=== PATIENT | female | born 1975 | race Caucasian/White ===

== ENCOUNTER → 2020-09-11 12:59 | Outpatient (BNVA) | payer OTHER, SELFPAY | PROVIDERS: PCP Family Medicine; Visit Provider Physician Assistant ==

== ENCOUNTER → 2020-09-26 08:15 | Outpatient (BNVA) | payer OTHER, SELFPAY | PROVIDERS: PCP Family Medicine; Visit Provider Surgery ==

== ENCOUNTER 2020-10-02 08:37 | Outpatient (REF) | payer OTHER, SELFPAY ==
--- NOTE | ~2020-10-02 | XR_ITS ---
EXAMINATION: XR CHEST CLINICAL INFORMATION: Morbid obesity due to excess calories COMPARISON: None TECHNIQUE: Two views of the chest were obtained. FINDINGS: No significant abnormality is noted involving the heart, lungs, mediastinum, bony thorax or soft tissues. XR/XR chest 2V IMPRESSION: Unremarkable examination.
--- NOTE | 2020-10-02 08:46 | ECG_ITS ---
Test Reason : OBESITY Blood Pressure : / mmHG Vent. Rate : 066 BPM Atrial Rate : 066 BPM P-R Int : 156 ms QRS Dur : 096 ms QT Int : 416 ms P-R-T Axes : 022 -29 042 degrees QTc Int : 436 ms Normal sinus rhythm Minimal voltage criteria for LVH, may be normal variant Borderline ECG When compared with ECG of 19-SEP-2019 20:15, No significant change was found Referred By: Roel Bejarano Electronically Signed By:DUSTIN ALLEN MD
[2020-10-02 09:50] LABS: MANUAL DIFF FLAG NO
[2020-10-02 10:08] LABS: Basophils Percent Auto 0.4 % (0-2); Eosinophils Absolute Auto 0.1 X10*3/uL (0.0-0.4); Hematocrit 41.7 % (37-47); Imm Gran Abs Auto 0.02 X10*3/uL (0.00-0.03); Imm Gran Pct Auto 0.4 % (0.0-0.4); Lymphocytes Absolute Auto 1.6 X10*3/uL (1.2-4.9); Mean Corpuscular HGB Conc 33.6 g/dl (31.0-35.0); Mean Corpuscular Hemoglobin 28.5 pg (27.0-33.0); Mean Corpuscular Volume 84.9 fL (80-98); Mean Platelet Volume 10.3 fL (9.4-12.3); Monocytes Absolute Auto 0.6 X10*3/uL (0.1-1.2); Monocytes Percent Auto 12.5 % (2-11); Neutrophils Absolute Auto 2.7 X10*3/uL (2.0-8.3); Neutrophils Percent Auto 53.7 % (45-73); Platelet Count 238 X10*3/uL (160-400); Red Blood Count 4.91 X10*6/uL (4.20-5.50); Red Cell Distribution Width 12.9 % (11.0-16.0)
[2020-10-02 10:09] LABS: Alanine Aminotransferase 82 U/L (0-31); Albumin Level 4.1 g/dL (3.5-5.0); Alkaline Phosphatase 59 U/L (39-117); Anion Gap 12 (12-20); Aspartate Amino Transferase 65 U/L (5-31); Bilirubin Total 0.6 mg/dL (0.0-1.0); Blood Urea Nitrogen 17 mg/dL (9-16); C Reactive Protein 0.96 mg/dL (< or = 0.50); Calcium 9.3 mg/dL (8.4-10.2); Carbon Dioxide 25 mmol/L (22-29); Chloride 105 mmol/L (96-108); Cholesterol 166 mg/dL; Estimated Glomerular Filt Rate > 60; Glucose Random 81 mg/dL (60-115); HDL Cholesterol 45 mg/dL; Iron 85 mcg/dL (30-160); LDL Cholesterol Calculated 107 mg/dl; Percent Iron Saturation 22 % (15-50); Sodium 138 mmol/L (135-145); Total Iron Binding Capacity 390 mcg/dL (228-428); Total Protein 7.4 g/dL (6.5-8.0); Triglycerides 71 mg/dL; Unsaturated Iron Binding 305 ug/dL
[2020-10-02 10:11] LABS: Estimated Average Glucose 108 mg/dL; Hemoglobin A1c % 5.4 %
[2020-10-02 10:34] LABS: TSH reflex Free T4 1.91 uIU/mL (0.32-4.0); Vitamin D 25-OH Total 33.3 ng/mL (>30)
[2020-10-02 10:51] LABS: Vitamin B12 264 pg/mL (200-900)
[2020-10-02 11:05] LABS: Ferritin 178 ng/mL (10-250)
[2020-10-03 12:42] LABS: H Pylori Breath Test NOT DETECTED (NOT DETECTED)
[2020-10-03 15:57] LABS: Calcium (PTHI) 9.3 mg/dL (8.6-10.2); PTHI 69 pg/mL (14-64)
[2020-10-03 19:11] LABS: Insulin Level Total 27.1 uIU/mL
[2020-10-05 18:37] LABS: Zinc 84 mcg/dL (60-130)
[2020-10-06 12:37] LABS: Vitamin B1 7 nmol/L (8-30)
[2020-10-08 01:22] LABS: Vitamin A 37 mcg/dL (38-98)
== END 2020-10-02 08:38 | disposition home or self-care (01) ==
LOC: HO.LAB 08:37
PROVIDERS: PCP Family Medicine; Visit Provider Surgery
DX: E66.01 Morbid (severe) obesity due to excess calories (principal); G47.30 Sleep apnea, unspecified; K76.0 Fatty (change of) liver, not elsewhere classified
CPT/HCPCS: 36415; 71046; 80053; 80061; 82306; 82607; 82728; 82746; 83013; 83036; 83525; 83540; 83970; 84425; 84443; 84590; 84630; 85025; 86140; 93005

== ENCOUNTER → 2020-10-09 12:03 | Outpatient (BNVA) | payer OTHER, SELFPAY | PROVIDERS: PCP Family Medicine; Referring Provider Family Medicine; Visit Provider Physician Assistant ==

== ENCOUNTER 2020-10-16 08:02 | Outpatient (REF) | payer OTHER, SELFPAY ==
--- NOTE | ~2020-10-16 | FL_ITS ---
EXAMINATION: XR GI SERIES CLINICAL INFORMATION: Morbid obesity COMPARISON: None TECHNIQUE: Air contrast upper GI examination FINDINGS: There is normal apposition of the vocal cords while saying E. There is normal elevation of the soft palate while saying candy. Patient swallowed thin and thick barium without difficulty. No nasopharyngeal reflux or tracheal aspiration identified. No Zenker's diverticulum or cricopharyngeal hypertrophy. There is normal motility of the esophagus without ulceration or stricture. No hiatal hernia was identified. No gastroesophageal reflux was seen as well as with water siphon test. The stomach has normal distensibility without ulceration or mass. There is no delay in gastric emptying. The duodenal bulb and sweep appear unremarkable. FLUOROSCOPY TIME: 2.7 minutes DOSE AREA PRODUCT: 57.988 Gy-cm2 (hsu-centimeter squared) FL/FL upper GI series IMPRESSION: Normal air contrast upper GI examination.
--- NOTE | ~2020-10-16 | US_ITS ---
EXAMINATION: US COMPLETE ABDOMEN WITH LIVER ELASTOGRAPHY CLINICAL INFORMATION: Obesity COMPARISON: None. TECHNIQUE: Real-time imaging of the abdominal viscera. Noninvasive ultrasound liver fibrosis assessment is performed using Mady ElastPQ point quantification shear wave elastography (pSWE) with a C5-2 MHz transducer. Multiple elastography samples are obtained. FINDINGS: PANCREAS: Normal. ABDOMINAL AORTA: Normal. INFERIOR VENA CAVA: Not well visualized due to bowel gas LIVER: Liver echotexture is increased. The liver demonstrates normal size and contour.. No focal lesion or intrahepatic biliary duct dilatation. The right lobe measures 13.5 cm in length. The left lobe measures 11 cm in length. Portal flow is normal/hepatopedal Shear wave liver elastography median stiffness is 1.35 m/s (reference: normal median stiffness is 1.3 m/s or less). IQR/median stiffness to assess sampling precision is 0.17 (reference: good quality data set is IQR/median stiffness of 0.15 or less). GALLBLADDER: Normal. The gallbladder is physiologically distended without evidence of stones, sludge, polyps, wall thickening or pericholecystic fluid. COMMON BILE DUCT: Normal in caliber measuring 0.3 cm in diameter. RIGHT KIDNEY: Normal. No hydronephrosis. No renal calculi or focal parenchymal lesions. The kidney measures 11.4 cm in maximum dimension. LEFT KIDNEY: Normal. No hydronephrosis. No renal calculi or focal parenchymal lesions. The kidney measures 11.7 cm in maximum dimension. SPLEEN: Normal. The spleen measures 11.6 cm in maximum dimension. FREE FLUID: None. US/US abdomen comp w elastography IMPRESSION: 1. Impression echogenic liver probably representing fatty infiltration. Limited visualization of the IVC due to bowel gas. 2. Liver elastography: Slightly limited due to sampling error. In the absence of other known clinical signs, rules out compensated advanced chronic liver disease. REFERENCE: Society of Radiologists in Ultrasound Liver Stiffness Thresholds (2020): LIVER STIFFNESS THRESHOLDS: *Liver Stiffness equal or less than 1.3 m/s: High probability of being normal. *Liver Stiffness less than 1.7 m/s: In the absence of other known clinical signs, rules out compensated advanced chronic liver disease. *Liver Stiffness 1.7-2.1 m/s: Suggestive of compensated advanced chronic liver disease but need further test for confirmation. *Liver Stiffness over 2.1 m/s: Rules in compensated advanced chronic liver disease. *Liver Stiffness over 2.4 m/s: Suggestive of clinically significant portal hypertension. QUALITY OF DATA SET: *IQR/Median value equal or less than 0.15 implies a quality data set. *IQR/Median value over 0.15 implies a poor quality data set. SIGNIFICANT CHANGE FROM PRIOR EXAM: Significant change if liver stiffness measurement is 10% or greater from prior exam. OTHER CONSIDERATIONS: The stage of liver fibrosis may be overestimated in the setting of acute hepatitis, liver inflammation, elevated liver function tests, hepatic vascular congestion, obstructive cholestasis, non-fasting state, and infiltrative diseases such as amyloidosis and lymphoma. In some patients with NAFLD, the liver stiffness thresholds for compensated advanced chronic liver disease may be lower. In causes other than viral hepatitis and NAFLD, liver stiffness thresholds are not well established.
== END 2020-10-16 08:03 | disposition home or self-care (01) ==
LOC: HO.US 08:02
PROVIDERS: PCP Family Medicine; Visit Provider Surgery
DX: Z01.818 Encounter for other preprocedural examination (principal); E66.01 Morbid (severe) obesity due to excess calories; K21.9 Gastro-esophageal reflux disease without esophagitis; K76.0 Fatty (change of) liver, not elsewhere classified; G47.30 Sleep apnea, unspecified
CPT/HCPCS: 74240; 76705; 76981

== ENCOUNTER → 2020-10-23 08:03 | Outpatient (BNVA) | payer OTHER, SELFPAY | PROVIDERS: PCP Family Medicine; Visit Provider Physician Assistant ==

== ENCOUNTER → 2020-10-30 08:27 | Outpatient (BNVA) | payer OTHER, SELFPAY | PROVIDERS: PCP Family Medicine; Visit Provider Physician Assistant ==

== ENCOUNTER → 2020-11-03 07:08 | Outpatient (BNVA) | payer OTHER, SELFPAY | PROVIDERS: PCP Family Medicine; Visit Provider Surgery ==

== ENCOUNTER → 2020-11-06 08:25 | Outpatient (BNVA) | payer OTHER, SELFPAY | PROVIDERS: PCP Family Medicine; Visit Provider Physician Assistant ==

== ENCOUNTER → 2020-11-13 08:31 | Outpatient (BNVA) | payer OTHER, SELFPAY | PROVIDERS: PCP Family Medicine; Visit Provider Physician Assistant ==

== ENCOUNTER → 2020-11-19 08:27 | Outpatient (BNVA) | payer OTHER, SELFPAY | PROVIDERS: PCP Family Medicine; Visit Provider Physician Assistant ==

== ENCOUNTER → 2020-11-24 08:13 | Outpatient (BNVA) | payer OTHER, SELFPAY | PROVIDERS: PCP Family Medicine; Visit Provider Dietitian, Registered | DX: E66.9 Obesity, unspecified (principal) | CPT/HCPCS: 97802 ==

== ENCOUNTER → 2020-11-27 08:32 | Outpatient (BNVA) | payer OTHER, SELFPAY | PROVIDERS: PCP Family Medicine; Visit Provider Physician Assistant ==

== ENCOUNTER → 2020-12-04 08:30 | Outpatient (BNVA) | payer OTHER, SELFPAY | PROVIDERS: PCP Family Medicine; Visit Provider Surgery ==

== ENCOUNTER → 2020-12-11 08:57 | Outpatient (BNVA) | payer OTHER, SELFPAY | PROVIDERS: PCP Family Medicine; Visit Provider Surgery ==

== ENCOUNTER → 2020-12-16 08:06 | Outpatient (BNVA) | payer OTHER, SELFPAY | PROVIDERS: PCP Family Medicine; Visit Provider Dietitian, Registered | DX: E66.01 Morbid (severe) obesity due to excess calories (principal); Z71.3 Dietary counseling and surveillance | CPT/HCPCS: 97803 ==

== ENCOUNTER → 2020-12-17 08:28 | Outpatient (BNVA) | payer OTHER, SELFPAY | PROVIDERS: PCP Family Medicine; Visit Provider Physician Assistant ==

== ENCOUNTER → 2020-12-25 07:58 | Outpatient (BNVA) | payer OTHER, SELFPAY | PROVIDERS: PCP Family Medicine; Visit Provider Physician Assistant ==

== ENCOUNTER → 2021-01-02 08:55 | Outpatient (BNVA) | payer OTHER, SELFPAY | PROVIDERS: PCP Family Medicine; Visit Provider Physician Assistant ==

== ENCOUNTER → 2021-01-14 06:53 | Outpatient (BNVA) | payer OTHER, SELFPAY | PROVIDERS: PCP Family Medicine; Visit Provider Surgery ==

== ENCOUNTER → 2021-01-16 08:10 | Outpatient (BNVA) | payer OTHER, SELFPAY | PROVIDERS: PCP Family Medicine; Referring Provider Family Medicine; Visit Provider Physician Assistant ==

== ENCOUNTER → 2021-02-06 08:31 | Outpatient (BNVA) | payer OTHER, SELFPAY | PROVIDERS: PCP Family Medicine; Visit Provider Surgery ==

== ENCOUNTER → 2021-02-13 08:30 | Outpatient (BNVA) | payer OTHER, SELFPAY | PROVIDERS: PCP Family Medicine; Referring Provider Family Medicine; Visit Provider Physician Assistant ==

== ENCOUNTER → 2021-02-27 08:07 | Outpatient (BNVA) | payer OTHER, SELFPAY | PROVIDERS: PCP Family Medicine; Referring Provider Family Medicine; Visit Provider Surgery ==

== ENCOUNTER → 2021-03-06 08:05 | Outpatient (BNVA) | payer OTHER, SELFPAY | PROVIDERS: PCP Family Medicine; Referring Provider Family Medicine; Visit Provider Physician Assistant ==

== ENCOUNTER → 2021-03-13 08:26 | Outpatient (BNVA) | payer OTHER, SELFPAY | PROVIDERS: PCP Family Medicine; Referring Provider Family Medicine; Visit Provider Physician Assistant ==

== ENCOUNTER → 2021-04-10 08:08 | Outpatient (BNVA) | payer OTHER, SELFPAY | PROVIDERS: PCP Family Medicine; Visit Provider Surgery ==

== ENCOUNTER → 2021-07-24 08:30 | Outpatient (BNVA) | payer OTHER, SELFPAY | PROVIDERS: PCP Family Medicine; Referring Provider Family Medicine; Visit Provider Physician Assistant Surgical | DX: Z13.89 Encounter for screening for other disorder (principal) ==

== ENCOUNTER → 2021-08-07 09:49 | Outpatient (BNVA) | payer OTHER, SELFPAY | PROVIDERS: PCP Family Medicine; Referring Provider Family Medicine; Visit Provider Physician Assistant Surgical | DX: Z13.89 Encounter for screening for other disorder (principal) ==

== ENCOUNTER → 2021-08-21 09:03 | Outpatient (BNVA) | payer OTHER, SELFPAY | PROVIDERS: PCP Family Medicine; Referring Provider Family Medicine; Visit Provider Physician Assistant Surgical | DX: Z13.89 Encounter for screening for other disorder (principal) ==

== ENCOUNTER → 2021-10-01 14:15 | Outpatient (BNVA) | payer OTHER, SELFPAY | PROVIDERS: PCP Family Medicine; Visit Provider Counselor Mental Health | DX: F33.1 Major depressive disorder, recurrent, moderate (principal); E66.01 Morbid (severe) obesity due to excess calories | CPT/HCPCS: 90834 ==

== ENCOUNTER → 2021-10-22 12:00 | Outpatient (BNVA) | payer OTHER, SELFPAY | PROVIDERS: PCP Family Medicine; Visit Provider Counselor Mental Health | DX: F33.1 Major depressive disorder, recurrent, moderate (principal); E66.01 Morbid (severe) obesity due to excess calories | CPT/HCPCS: 90834 ==

== ENCOUNTER → 2021-11-05 11:45 | Outpatient (BNVA) | payer OTHER, SELFPAY | PROVIDERS: PCP Family Medicine; Visit Provider Counselor Mental Health | DX: F33.1 Major depressive disorder, recurrent, moderate (principal); E66.01 Morbid (severe) obesity due to excess calories | CPT/HCPCS: 90834 ==

== ENCOUNTER 2023-02-28 19:32 | Emergency (ER) | payer OTHER, SELFPAY ==
--- NOTE | 2023-02-28 | ECG_ITS ---
Test Reason : ALLERGIC REACTION Blood Pressure : / mmHG Vent. Rate : 082 BPM Atrial Rate : 082 BPM P-R Int : 146 ms QRS Dur : 102 ms QT Int : 366 ms P-R-T Axes : 000 -37 048 degrees QTc Int : 427 ms Normal sinus rhythm Left axis deviation Intra-ventricular conduction delay Moderate voltage criteria for LVH, may be normal variant ( R in aVL , Rafiq product ) Abnormal ECG When compared with ECG of 02-OCT-2020 08:53, No significant change was found Referred By: Generic ED Physician Electronically Signed By:CHRISTINA TORRES MD
--- NOTE | 2023-02-28 19:39 | ED.GENADULT ---
HPI - General Adult General Chief complaint: Allergic Reaction Stated complaint: ?allergic reaction no med Time Seen by Provider: 02/28/23 22:55 Source: patient Mode of arrival: ambulatory Limitations: no limitations History of Present Illness HPI narrative: 47-year-old female who presents emergency department for evaluation adverse drug reaction to ciprofloxacin. The patient was diagnosed with urinary tract infection 2 days prior. I was able to review her results through her patient portal. She had a urinalysis and microscopic evaluation which revealed too numerous to count rbc's, 5-10 squamous cells and 3+ bacteria. Her urine culture grew greater than 100,000 colony-forming units of E coli which was pansensitive to all drugs test include cephalosporins, Macrobid and ciprofloxacin. Patient initially was started on Macrobid but then she was contacted today and changed to ciprofloxacin. She states she took a dose at 18:30 hours and then 30 minutes prior she started to feel ill she states that her eyes felt tight, she felt like her heart was pounding and she was going to pass out. She developed nausea, shakiness and felt like her hands and feet were swollen and itchy. She drove herself to the emergency department. While being in the emergency department, she did not receive any treatment and her symptoms resolved. The patient did not notice a rash. Related Data Home Medications Medication Instructions Recorded Confirmed alprazolam 0.5 mg tablet 0.5 mg PO Q8H PRN 09/11/20 08/21/21 bupropion HCl 150 mg tablet,12 hr 150 mg PO BID 08/21/21 08/21/21 sustained-release (Wellbutrin SR) citalopram 40 mg tablet 20 mg PO DAILY 08/21/21 08/21/21 Previous Rx's Medication Instructions Recorded cefuroxime axetil 250 mg tablet 250 mg PO Q12H 5 days #10 tabs 02/28/23 Allergies Allergy/AdvReac Type Severity Reaction Status Date / Time clindamycin [CLINDAMYCIN] Allergy Mild RASH Verified 08/21/21 09:07 Review of Systems Review of Systems: Yes all other systems are reviewed and are negative [facility] Past Medical History [facility] Narrative: Social history: She denies tobacco, alcohol use, she occasionally eats marijuana edibles. Medical History Anxiety Delivery with history of Depression DJD (degenerative joint disease) Morbid obesity Sleep apnea with use of continuous positive airway pressure (CPAP) Steatosis, liver Surgical History History of Hx of cholecystectomy Family History Family History Father No problems noted. Sister No problems noted. Sister No problems noted. Sister No problems noted. Sister No problems noted. Sister Crohn disease Mother Brain cancer Son No problems noted. Son No problems noted. Social History Social History Alcohol intake: current Alcohol intake frequency: holidays/special occasions only Patient Tobacco Use Status: Never used Tobacco Advance Directives: No Advance Directives Information Provided: No Physical Exam ED Vital Signs: Vital Signs - 24 hr 02/28/23 20:37 Temperature 97.7 F Pulse Rate 84 Respiratory Rate 17 Blood Pressure 181/84 H Pulse Oximetry 96 Oxygen Delivery Method Room Air BMI result Body Mass Index 75.5 Vital signs did reveal an elevated blood pressure of 181/84. Exam General: Awake, alert in no distress Head: Normocephalic, atraumatic EENT: Lids normal, sclera normal, conjunctiva normal, nose normal , ears normal, throat without erythema or exudates Neck: Supple, no adenopathy, no trachea midline or C-spine tenderness Lung: breath sounds symmetric, no wheezing, rales or rhonchi Chest: symmetric movement, nontender Heart: regular rate and rhythm, normal S1, S2 no murmurs or rubs Abdomen: soft, non-tender, nondistended, normal bowel sounds Back: no vertebral tenderness, no CVAT Extremities: no deformities, moves all extremities symmetrically Skin: no rashes, no lesion, normal color and warmth Neuro: Awake, alert, oriented, normal speech, cranial nerves intact, moves all extremities symmetrically Psych: Pleasant, cooperative Course Course Course Narrative: RME- 47-year-old female presents for evaluation of ?my eyes feel funny and I am having a hard time breathing. ? Patient was diagnosed with a UTI 2 days ago. She was started on nitrofurantoin but then received a phone call today that she needs to change antibiotics. She took 1 dose of ciprofloxacin about 30 minutes prior to arrival. She now it is experiencing which he describes as palpitations, difficulty breathing, nausea and ?a weird feeling in my eyes. ? On exam, the patient appears very anxious, she has no facial, oral or perioral edema. No stridor, lungs are clear to auscultation. Medical Decision Making Medical Decision Making [facility] Narrative: 47-year-old female the past medical history of degenerative joint disease, anxiety, depression, obstructive sleep apnea diagnosed with urinary tract infection 2 days prior urinary tract infection, in reviewing her laboratory data as she had a positive urinalysis, positive microscopic and grew greater than 100,000 colony-forming units of E coli which was pansensitive. Patient was initially started on Macrobid then changed to ciprofloxacin. 30 minutes after taking a dose of ciprofloxacin she had an adverse drug reaction which include I tightness, shakiness, shortness of breath, nausea, itchiness and swelling in her hands and feet. She did not have a rash. The patient's symptoms resolved here in the emergency department without treatment. Her examination was unremarkable except for an elevated blood pressure. Patient had a 12 EKG which was unremarkable and unchanged from her previous. Patient's symptoms are consistent with an adverse drug reaction to ciprofloxacin which most likely triggered hyperventilation syndrome. I did discuss this with her. She was advised to stop taking ciprofloxacin. She was started on cefuroxime 250 mg pills, 1 pill every 12 hours x5 days. She was given her 1st dose here in the emergency department. She was given printed and verbal instructions and discharged home. Differential Diagnosis Differential Diagnoses: The differential diagnosis associated with the presentation includes 23:27 Differential diagnosis includes but is not limited to urinary tract infection, pyelonephritis, hyperventilation syndrome, panic attack, allergic reaction Admission/Observation Consideration of admission/observation: Escalation of care including admission/observation considered Independent Interpretation I performed an independent interpretation of an: EKG Interpretation: My independent interpretation patient's 12 EKG done at 21:46 hours is as follows: Normal sinus rhythm with a rate of 82, normal IN interval, prolonged QRS duration of 102 milliseconds, normal QTC interval, no ST segment elevation, no ST segment depression, no significant T-wave abnormalities, LVH by voltage criteria, compared to EKG dated 10/02/2020 there is no significant change. External Record Review External record reviewed: Prior outpatient labs Prescription Management I considered prescription management with: Antibiotic Chronic Conditions Patient?s care impacted by: Other (Anxiety, depressed, obstructive sleep apnea) Discharge Plan Discharge Clinical Impression: Acute hyperventilation syndrome Adverse drug reaction Qualifiers: Encounter type: initial encounter Qualified Code(s): T50.905A - Adverse effect of unspecified drugs, medicaments and biological substances, initial encounter Patient Disposition: Home, Self-Care Instructions: Urinary Tract Infection in Women (ED) Additional Instructions: You had an adverse drug reaction to ciprofloxacin. Do not take this medication again. Some of your symptoms were caused by hyperventilation syndrome which was triggered by the adverse drug reaction. In reviewing your patient portal with you, your urine culture was positive for E coli which was sensitive to all antibiotics tested. I am starting you on cefuroxime 250 mg pills, 1 pill every 12 hours for 5 days for your urine infection Follow-up with your doctor in 2 days. Please return to the emergency department if your symptoms get worse or if you develop any symptoms that are concerning to you. Prescriptions: New cefuroxime axetil 250 mg tablet 250 mg PO Q12H 5 Days Qty: 10 0RF No Action alprazolam 0.5 mg tablet 0.5 mg PO Q8H PRN citalopram 40 mg tablet 20 mg PO DAILY bupropion HCl [Wellbutrin SR] 150 mg tablet sustained-release 12 hr 150 mg PO BID
[2023-02-28 20:37] VITALS: BP 181/84; PULSE 84; RESP 17; TEMP 36.5; O2SAT 96; BMI 75.5
[2023-02-28] MEDS: cefuroxime axetiL 250 MG TABLET PO (23:41)
[2023-02-28 23:45] VITALS: BP 164/84; PULSE 81; RESP 18; TEMP 37; O2SAT 98
--- NOTE | 2023-02-28 23:45 | PC.NURSE ---
pt a&ox3. respirations even and unlabored, no acute distress, speaking in full sentences.
== END 2023-02-28 23:46 | disposition home or self-care (01) ==
PROVIDERS: Emergency Provider Emergency Medicine Emergency Medical Services; PCP Family Medicine
DX: F45.8 Other somatoform disorders (principal); R94.31 Abnormal electrocardiogram [ECG] [EKG]; T36.8X5A Adverse effect of other systemic antibiotics, initial encounter; Y92.9 Unspecified place or not applicable; Z79.899 Other long term (current) drug therapy
CPT/HCPCS: 93005; 99283; 99284